=== PATIENT | male | born 1950 | race Caucasian/White ===

== ENCOUNTER 2017-03-26 10:44 | Outpatient (RCR) | payer MEDICARE, OTHER ==
[2015-03-15 09:26] VITALS: BMI 30.0
[2017-03-21 08:21] VITALS: BP 144/85
[~2017-03-26 10:44] MED LIST: ASPI-1441 PO; ATOR20TA65 PO; BENA20TA62 PO; BLOO-1318 MC; DILT240C83 PO; HCTZ25 PO; HYDR-855 PO; INSU100I30 SUBQ; LISI-362 PO; LISI5TAB25 PO; METF-410 PO; TAMS0.4C25 PO
== END 2017-03-26 15:23 | disposition home or self-care (01) ==
LOC: RAON 10:44
PROVIDERS: ATTEND Nurse Practitioner Family
DX: Z85.46 Personal history of malignant neoplasm of prostate (principal); Z92.3 Personal history of irradiation; E11.9 Type 2 diabetes mellitus without complications; I10 Essential (primary) hypertension; R35.1 Nocturia
CPT/HCPCS: 36415; 84153

== ENCOUNTER → 2017-04-11 | Outpatient (CLI) | payer MEDICARE, OTHER ==
[2015-03-15 09:26] VITALS: BMI 30.0
[~2017-04-11] MED LIST changes: +PNEU0.5D3 IM
[2017-04-11 07:55] LABS: PLATELET COUNT, AUTOMATED 184 K/uL (150-450)
[2017-04-11 08:23] LABS: LDL CHOLESTEROL 70 mg/dl
== END ==
LOC: LAB 07:37
PROVIDERS: ATTEND Nurse Practitioner Family
DX: Z12.5 Encounter for screening for malignant neoplasm of prostate (principal); E11.9 Type 2 diabetes mellitus without complications; Z85.46 Personal history of malignant neoplasm of prostate; I10 Essential (primary) hypertension; E78.5 Hyperlipidemia, unspecified
CPT/HCPCS: 36415; 83036; 84443; 85025; G0103; 82040; 82247; 82310; 82374; 82435; 82465; 82565; 82947; 83718; 84075; 84132; 84153; 84155; 84295; 84450; 84460; 84478; 84520

== ENCOUNTER → 2017-10-25 | Outpatient (CLI) | payer MEDICARE, OTHER ==
[2015-03-15 09:26] VITALS: BMI 30.0
[~2017-10-25] MED LIST changes: -METF-410 PO; +METF-450 PO
== END ==
LOC: LAB 08:55
PROVIDERS: ATTEND Nurse Practitioner Family
DX: E78.5 Hyperlipidemia, unspecified (principal); E11.9 Type 2 diabetes mellitus without complications; I10 Essential (primary) hypertension
CPT/HCPCS: 36415; 82040; 82247; 82310; 82374; 82435; 82565; 82947; 83036; 84075; 84132; 84155; 84295; 84450; 84460; 84520

== ENCOUNTER → 2018-04-11 | Outpatient (CLI) | payer MEDICARE, OTHER ==
[2015-03-15 09:26] VITALS: BMI 30.0
[~2018-04-11] MED LIST changes: +ATOR40TA69 PO; +GLIM1TAB25 PO
[2018-04-11 08:27] LABS: LDL CHOLESTEROL 74 mg/dl
[2018-04-11 08:36] LABS: PLATELET COUNT, AUTOMATED 206 K/uL (150-450)
== END ==
LOC: LAB 07:52
PROVIDERS: ATTEND Nurse Practitioner Family
DX: E87.1 Hypo-osmolality and hyponatremia (principal); E11.9 Type 2 diabetes mellitus without complications; I10 Essential (primary) hypertension; Z12.5 Encounter for screening for malignant neoplasm of prostate
CPT/HCPCS: 36415; 83036; 84443; 85025; G0103; 82040; 82247; 82310; 82374; 82435; 82465; 82565; 82947; 83718; 84075; 84132; 84153; 84155; 84295; 84450; 84460; 84478; 84520

== ENCOUNTER 2018-05-08 08:28 | Outpatient (RCR) | payer MEDICARE, OTHER ==
[2015-03-15 09:26] VITALS: Wt 111.3 kg
[2018-05-08 09:10] VITALS: BP 141/88
--- NOTE | 2018-05-08 12:42 | PURVIANCE FOLLOW UP ---
EVENT DATE: May 08, 2018 DIAGNOSIS/ONCOLOGY TREATMENT HISTORY Prostate adenocarcinoma, status post prostate brachytherapy, seed implant as monotherapy completed in May 2010. INTERVAL HISTORY The patient presents today for followup. Upon presentation today, the patient overall feels well. He has nocturia approximately one time per night, which overall remains stable. He does take Flomax once daily. He has some sensation of incomplete emptying and urinary frequency but denies urgency or dysuria. The patient has normal bowel movements. He has had scant blood noted from his anal area when wiping with toilet paper. He did undergo a colonoscopy approximately two to three years ago and is not due for another colonoscopy in ten years post. The patient had a PSA of 0.13 ng/mg on April 11, 2018. PAST MEDICAL HISTORY 1. Prostrate adenocarcinoma Ratna pattern 3+4 involving 3 out of 12 cores, status post definitive prostate brachytherapy seed implant in 2010. 2. Diabetes. 3. Hypertension. 4. Nocturia. ALLERGIES No known drug allergies. MEDICATIONS 1. Atorvastatin. 2. Flomax. 3. Lisinopril. 4. Metformin. 5. Glimepiride. SOCIAL HISTORY Nonsmoker. Patient is single with four children. No significant tobacco, alcohol or drug use. FAMILY HISTORY Noncontributory. REVIEW OF SYSTEMS 14-point review of systems is unremarkable with the exception of those noted in the HPI. This is documented in the chart and signed. PHYSICAL EXAMINATION CONSTITUTIONAL AND GENERAL APPEARANCE: The patient is sitting comfortably in the chair in no acute distress. HEENT: Pupils are equal, round and reactive to light and accommodation. Extraocular movements are intact. There are no lesions of the oropharynx. NECK: The neck is supple, trachea is midline. LYMPHATIC SURVEY: No palpable supraclavicular lymphadenopathy bilaterally. LUNGS: Clear to auscultation and percussion bilaterally. CARDIOVASCULAR: Regular rate and rhythm, normal S1 and S2. No murmurs, rubs or gallops. BMI is normal. ABDOMEN: Soft, nontender with active bowel sounds. No hepatosplenomegaly. EXTREMITIES: No edema, clubbing or cyanosis. NEUROLOGIC: The patient is alert and oriented x3. Gait is normal. PERFORMANCE STATUS: 90%. IMPRESSION Intermediate response to adenocarcinoma, status post prostate brachytherapy and seed implant. He has had an excellent PSA response with no evidence of recurrent disease, now eight years remote from treatment. He has satisfactory urinary symptoms and is on Flomax. PLAN The patient will followup with Radiation/Oncology in one year. He was encouraged to use Preparation H for what appears to be hemorrhoidal bleeding. He is instructed to follow up with his primary care provider if the hemorrhoidal bleeding does not respond to Preparation H. ENZO
== END 2018-06-20 12:39 | disposition home or self-care (01) ==
LOC: RAON 08:28
PROVIDERS: ATTEND Nurse Practitioner Family
DX: Z85.46 Personal history of malignant neoplasm of prostate (principal); Z92.3 Personal history of irradiation
CPT/HCPCS: 99212

== ENCOUNTER → 2018-07-29 | Outpatient (CLI) | payer MEDICARE, OTHER ==
[2015-03-15 09:26] VITALS: BMI 30.0
[~2018-07-29] MED LIST changes: +HYDR12.561 PO; +LISI-362; +LISI20TA29 PO; +SITA1TBM4 PO
[2018-07-29 11:27] LABS: LDL CHOLESTEROL 67 mg/dl
== END ==
LOC: LAB 10:44
PROVIDERS: ATTEND Nurse Practitioner Family
DX: E11.9 Type 2 diabetes mellitus without complications (principal); E78.5 Hyperlipidemia, unspecified; I10 Essential (primary) hypertension
CPT/HCPCS: 36415; 82040; 82247; 82310; 82374; 82435; 82465; 82565; 82947; 83036; 83718; 84075; 84132; 84155; 84295; 84450; 84460; 84478; 84520

== ENCOUNTER → 2018-07-30 | Outpatient (CLI) | payer MEDICARE, OTHER ==
[2015-03-15 09:26] VITALS: BMI 30.0
== END ==
LOC: LAB 07:55
PROVIDERS: ATTEND Nurse Practitioner Family
DX: E87.5 Hyperkalemia (principal)
CPT/HCPCS: 36415; 84132